=== PATIENT | female | born 1985 | race Caucasian/White ===

== ENCOUNTER 2020-10-07 10:39 | Emergency (ER) | payer OTHER ==
--- NOTE | 2020-10-07 10:52 | ERPHSYRPT ---
- History of Present Illness Time Seen by Provider: 10/07/20 10:52 Source: patient, family Exam Limitations: no limitations Physician History: This is a 35-year-old white female who has no diagnosed medical history except occasional panic attacks and is not on any medication and presents with a 1 week history of intermittent chest pain, back pain and pain up into both upper extremities. She has not had any coughing. She has no abdominal pain. She has no nausea vomiting or diarrhea. She had no fever symptoms. The chest pain is sharp with the above stated sites of radiation. She is not short of breath. Patient does smoke cigarettes and admits that she drinks a large amount of caffeinated energy drinks daily. Timing/Duration: week(s) (1) Method of Injury: other (No injury) Quality: sharp Severity of Pain-Max: moderate Severity of Pain-Current: mild Associated Symptoms: denies symptoms Previous symptoms: no prior history Allergies/Adverse Reactions: No Known Drug Allergies Allergy (Verified 10/07/20 11:05) Hx Tetanus, Diphtheria Vaccination/Date Given: Yes (UNKNOWN) Hx Influenza Vaccination/Date Given: No Hx Pneumococcal Vaccination/Date Given: No Travel Risk - International Travel Have you traveled outside of the country in past 3 weeks: No - Coronavirus Screening Are you exhibiting any of the following symptoms?: No Close contact with a COVID-19 positive Pt in past 14-21 Days: No - Review of Systems Constitutional: No Symptoms Eyes: No Symptoms Ears, Nose, & Throat: No Symptoms Respiratory: No Symptoms Cardiac: Chest Pain Abdominal/Gastrointestinal: No Symptoms Genitourinary Symptoms: No Symptoms Musculoskeletal: Back Pain Skin: No Symptoms Neurological: No Symptoms Psychological: No Symptoms Endocrine: No Symptoms Hematologic/Lymphatic: No Symptoms Immunological/Allergic: No Symptoms All Other Systems: Reviewed and Negative - Past Medical History Pertinent Past Medical History: Yes Neurological History: No Pertinent History ENT History: No Pertinent History Cardiac History: Other Respiratory History: No Pertinent History Endocrine Medical History: Hypoglycemia Musculoskeletal History: No Pertinent History GI Medical History: No Pertinent History History: Renal Disease Psycho-Social History: Depression Female Reproductive Disorders: Other Other Medical History: HEART MURMUR - Past Surgical History Past Surgical History: Yes Neuro Surgical History: No Pertinent History Cardiac: No Pertinent History Respiratory: No Pertinent History Gastrointestinal: Other Genitourinary: No Pertinent History Musculoskeletal: No Pertinent History Female Surgical History: Tubal Ligation Other Surgical History: PT STATES "I ON THE TABLE WHEN I WAS GETTING MY TUBES TIED IS WHAT THE MD TOLD ME". COLONOSCOPY IN THE PAST - Social History Smoking Status: Current every day smoker How long have you smoked: 11 Exposure to second hand smoke: Yes Drug Use: none Patient Lives Alone: No - Nursing Vital Signs Nursing Vital Signs: Initial Vital Signs Pulse Rate 80 10/07/20 10:47 Respiratory Rate 26 H 10/07/20 10:47 Blood Pressure 93/63 10/07/20 10:47 O2 Sat by Pulse Oximetry 100 10/07/20 10:47 Pain Scale Pain Intensity 2 - Physical Exam General Appearance: no apparent distress, alert, anxiety Eye Exam: PERRL/EOMI, eyes nml inspection Ears, Nose, Throat Exam: normal ENT inspection, moist mucous membranes Neck Exam: normal inspection, non-tender, supple, full range of motion Respiratory Exam: normal breath sounds, chest tenderness, lungs clear, airway intact, No respiratory distress Cardiovascular Exam: regular rate/rhythm, normal heart sounds, normal peripheral pulses Gastrointestinal Exam: soft, normal bowel sounds, No tenderness Pelvic Exam: not done Rectal Exam: not done Back Exam: normal inspection, normal range of motion, No CVA tenderness, No vertebral tenderness Extremity Exam: normal inspection, normal range of motion, pelvis stable Neurologic Exam: alert, oriented x 3, cooperative, managing director atlas II-XII nml as tested, normal mood/affect, nml cerebellar function, nml station & gait, sensation nml Skin Exam: normal color, warm, dry Lymphatic Exam: No adenopathy SpO2 Interpretation: normal O2 Delivery: Room Air - Course Nursing assessment & vital signs reviewed: Yes EKG Interpreted by Me: RATE (75), Sinus Rhythm, NORMAL AXIS, NORMAL INTERVALS, NORMAL QRS, NORMAL ST-T, Other (No acute ischemic changes on today's EKG. There are no changes when compared to EKG dated 02/18/2013) Ordered Tests: Active Orders 24 hr Category Date Time Status EKG-ER Only STAT Care 10/07/20 11:19 Active IV Insertion STAT Care 10/07/20 11:19 Active Pulse Oximetry (ED) STAT Care 10/07/20 11:19 Active CHEST 1 VIEW (PORTABLE) Stat Exams 10/07/20 11:19 Completed CHEST WITH CONTRAST [CT] Stat Exams 10/07/20 11:53 Completed CBC W DIFF Stat Lab 10/07/20 11:30 Completed CMP Stat Lab 10/07/20 11:30 Completed CULTURE,URINE Stat Lab 10/07/20 11:27 Received D-DIMER QUANTITATIVE Stat Lab 10/07/20 11:30 Completed Manual Differential NC Stat Lab 10/07/20 11:30 Completed PROTIME WITH INR Stat Lab 10/07/20 11:30 Completed TROPONIN Q3H Lab 10/07/20 11:19 Completed TROPONIN Q3H Lab 10/07/20 14:30 Ordered TROPONIN Q3H Lab 10/07/20 17:30 Ordered TROPONIN Q3H Lab 10/07/20 20:30 Ordered TROPONIN Q3H Lab 10/07/20 23:30 Ordered UA W/RFX UR CULTURE Stat Lab 10/07/20 11:27 Completed Urine Triage Profile Stat Lab 10/07/20 11:27 Completed Medication Summary Discontinued Medications Generic Name Dose Route Start Last Admin Trade Name Freq PRN Reason Stop Dose Admin Aspirin 324 mg 10/07/20 11:19 10/07/20 11:34 Baby Aspirin 81 Mg Chew PO 10/07/20 11:20 324 mg STAT ONE Administration Sodium Chloride 500 mls @ 500 mls/hr 10/07/20 11:53 10/07/20 11:58 Sodium Chloride 0.9% 500 Ml IV 10/07/20 12:52 500 mls/hr .Q1H ONE Administration Sodium Chloride Confirm 10/07/20 11:56 Sodium Chloride 0.9% 500 Ml Administered 10/07/20 11:57 Dose 500 mls @ ud IV .STK-MED ONE Ceftriaxone Sodium/Dextrose 1 g in 50 mls @ 100 mls/hr 10/07/20 12:16 12:28 Rocephin 1 Gm-D5w 50 Ml Bag IV 10/07/20 12:45 100 mls/hr STAT STA 100 mls/hr Administration Ceftriaxone Sodium/Dextrose Confirm 10/07/20 12:27 Rocephin 1 Gm-D5w 50 Ml Bag Administered 10/07/20 12:28 Dose 1 g in 50 mls @ ud IV .STK-MED ONE Lab/Rad Data: Laboratory Result Diagrams 10/07/20 11:30 10/07/20 11:30 Laboratory Results 10/07/20 10/07/20 10/07/20 Range/Units 11:30 11:30 11:30 WBC 5.4 (4.0-10.5) K/mm3 RBC 4.62 (4.1-5.4) M/mm3 Hgb 13.6 (12.0-16.0) gm/dl Hct 40.9 (35-47) % MCV 88.5 (78-100) fl MCH 29.4 (26-32) pg MCHC 33.3 (32-36) g/dl RDW 12.9 (11.5-14.0) % Plt Count 164 (150-450) K/mm3 MPV 10.9 (7.5-11.0) fl PT 13.5 H (9.4-12.5) SECONDS INR 1.14 (0.8-3.0) D-Dimer 2490 H* (215-500) ng/mL Sodium 138 (137-145) mmol/L Potassium 3.5 (3.5-5.1) mmol/L Chloride 103 (98-107) mmol/L Carbon Dioxide 22 (22-30) mmol/L Anion Gap 17.1 H (5-15) MEQ/L BUN 6 L (7-17) mg/dL Creatinine 0.66 (0.52-1.04) mg/dL Estimated GFR > 60.0 ML/MIN Glucose 96 (74-106) mg/dL Calcium 9.3 (8.4-10.2) mg/dL Total Bilirubin 0.20 (0.2-1.3) mg/dL AST 49 H (14-36) U/L ALT 46 H (0-35) U/L Alkaline Phosphatase 109 (38-126) U/L Troponin I (0.000-0.034) ng/mL Serum Total Protein 7.7 (6.3-8.2) g/dL Albumin 4.6 (3.5-5.0) g/dL Urine Color (YELLOW) Urine Appearance (CLEAR) Urine pH (5-6) Ur Specific [place] (1.005-1.025) Urine Protein (Negative) Urine Ketones (NEGATIVE) Urine Blood (0-5) Young/ul Urine Nitrite (NEGATIVE) Urine Bilirubin (NEGATIVE) Urine Urobilinogen (0-1) mg/dL Ur Leukocyte Esterase (NEGATIVE) Urine WBC (Auto) (0-5) /HPF Urine RBC (Auto) (0-2) /HPF U Epithel Cells (Auto) (FEW) /HPF Urine Bacteria (Auto) (NEGATIVE) /HPF Urine Culture Reflexed (NO) Urine Glucose (NEGATIVE) mg/dL Urine Opiates Level (NEGATIVE) Ur Methadone (NEGATIVE) Urine Barbiturates (NEGATIVE) Ur Phencyclidine (PCP) (NEGATIVE) Urine Amphetamine (NEGATIVE) U Benzodiazepine Level (NEGATIVE) Urine Cocaine (NEGATIVE) Urine Marijuana (THC) (NEGATIVE) 10/07/20 10/07/20 10/07/20 Range/Units 11:27 11:27 11:19 WBC (4.0-10.5) K/mm3 RBC (4.1-5.4) M/mm3 Hgb (12.0-16.0) gm/dl Hct (35-47) % MCV (78-100) fl MCH (26-32) pg MCHC (32-36) g/dl RDW (11.5-14.0) % Plt Count (150-450) K/mm3 MPV (7.5-11.0) fl PT (9.4-12.5) SECONDS INR (0.8-3.0) D-Dimer (215-500) ng/mL Sodium (137-145) mmol/L Potassium (3.5-5.1) mmol/L Chloride (98-107) mmol/L Carbon Dioxide (22-30) mmol/L Anion Gap (5-15) MEQ/L BUN (7-17) mg/dL Creatinine (0.52-1.04) mg/dL Estimated GFR ML/MIN Glucose (74-106) mg/dL Calcium (8.4-10.2) mg/dL Total Bilirubin (0.2-1.3) mg/dL AST (14-36) U/L ALT (0-35) U/L Alkaline Phosphatase (38-126) U/L Troponin I < 0.012 (0.000-0.034) ng/mL Serum Total Protein (6.3-8.2) g/dL Albumin (3.5-5.0) g/dL Urine Color YELLOW (YELLOW) Urine Appearance CLOUDY (CLEAR) Urine pH 6.0 (5-6) Ur Specific [place] 1.002 (1.005-1.025) Urine Protein NEGATIVE (Negative) Urine Ketones NEGATIVE (NEGATIVE) Urine Blood LARGE (0-5) Young/ul Urine Nitrite NEGATIVE (NEGATIVE) Urine Bilirubin NEGATIVE (NEGATIVE) Urine Urobilinogen NEGATIVE (0-1) mg/dL Ur Leukocyte Esterase TRACE (NEGATIVE) Urine WBC (Auto) 6-10 (0-5) /HPF Urine RBC (Auto) 0-2 (0-2) /HPF U Epithel Cells (Auto) FEW (FEW) /HPF Urine Bacteria (Auto) RARE (NEGATIVE) /HPF Urine Culture Reflexed YES (NO) Urine Glucose NEGATIVE (NEGATIVE) mg/dL Urine Opiates Level NEGATIVE (NEGATIVE) Ur Methadone NEGATIVE (NEGATIVE) Urine Barbiturates NEGATIVE (NEGATIVE) Ur Phencyclidine (PCP) NEGATIVE (NEGATIVE) Urine Amphetamine NEGATIVE (NEGATIVE) U Benzodiazepine Level NEGATIVE (NEGATIVE) Urine Cocaine NEGATIVE (NEGATIVE) Urine Marijuana (THC) NEGATIVE (NEGATIVE) - Progress Progress: improved, re-examined Progress Note: 10/07/20 11:43 Chest x-ray shows no acute cardiopulmonary process 10/07/20 12:59 CAT scan of the chest with contrast shows no evidence of any pulmonary emboli, pneumothorax, pneumonia or other acute pulmonary process. Counseled pt/family regarding: lab results, diagnosis, need for follow-up, rad results - Departure Departure Disposition: Home Clinical Impression: Chest pain, Back pain, Urinary tract infection Condition: Stable Critical Care Time: No Referrals: PETER HILL MD [ACTIVE STAFF] - Additional Instructions: Drink plenty of fluids. Take medication as prescribed. Follow-up with your primary care physician for further management. Prescriptions: Ciprofloxacin [Cipro 500 MG] 500 mg PO BID #14 tablet
[2020-10-07] MEDS ORDERED: BABY ASPIRIN 81 MG CHEW PO ONE (11:19)
[2020-10-07 11:27] VITALS: O2SAT 98
[2020-10-07 11:34] LABS: Hematocrit 40.9 % (35-47); Hemoglobin 13.6 gm/dl (12.0-16.0); Mean Cell Volume 88.5 fl (78-100); Mean Corpuscular Hemoglobin 29.4 pg (26-32); Mean Corpuscular Hgb Concent. 33.3 g/dl (32-36); Mean Platelet Volume 10.9 fl (7.5-11.0); Platelet Count 164 K/mm3 (150-450); Red Blood Count 4.62 M/mm3 (4.1-5.4); Red Cell Distribution Width 12.9 % (11.5-14.0); White Blood Count 5.4 K/mm3 (4.0-10.5)
--- NOTE | 2020-10-07 11:36 | XRAY ---
Indication: Chest pain. Comparison: February 14, 2013. Portable chest again demonstrate normal heart, lungs, and bony thorax.
[2020-10-07 11:40] LABS: Appearance CLOUDY (CLEAR); Bacteria RARE /HPF (NEGATIVE); Bilirubin NEGATIVE (NEGATIVE); Blood LARGE Ery/ul (0-5); Epithelial Cells FEW /HPF (FEW); Glucose NEGATIVE (NEGATIVE); Ketones NEGATIVE (NEGATIVE); Leukocyte Esterase TRACE (NEGATIVE); Nitrite NEGATIVE (NEGATIVE); Protein,Urine Dip NEGATIVE (Negative); RBC 0-2 /HPF (0-2); Specific Gravity 1.002 (1.005-1.025); Urobilinogen NEGATIVE mg/dL (0-1)
[2020-10-07 11:43] LABS: INR 1.14 (0.8-3.0); PROTIME 13.5 SECONDS (9.4-12.5)
[2020-10-07 11:48] LABS: ALBUMIN 4.6 g/dL (3.5-5.0); ALKALINE PHOSPHATASE 109 U/L (38-126); ANION GAP 17.1 MEQ/L (5-15); BLOOD UREA NITROGEN 6 mg/dL (7-17); CHLORIDE 103 mmol/L (98-107); Calcium 9.3 mg/dL (8.4-10.2); Carbon Dioxide 22 mmol/L (22-30); Creatinine 1 0.66 mg/dL (0.52-1.04); EST GLOMERULAR FILTRATION RATE > 60.0 ML/MIN; Glucose 96 mg/dL (74-106); Potassium 3.5 mmol/L (3.5-5.1); SGOT/AST 49 U/L (14-36); SGPT/ALT 46 U/L (0-35); SODIUM 138 mmol/L (137-145); Total Protein 7.7 g/dL (6.3-8.2)
[2020-10-07] MEDS ORDERED: Sodium Chloride 0.9% 500 ML 500 ML IV ONE ×2 (11:53→11:56)
[2020-10-07 12:03] LABS: Amphetamine,Urine NEGATIVE (NEGATIVE); Barbiturate,Urine NEGATIVE (NEGATIVE); Benzodiazepine,Urine NEGATIVE (NEGATIVE); Cocaine,Urine NEGATIVE (NEGATIVE); Methadone,Urine NEGATIVE (NEGATIVE); Opiate,Urine NEGATIVE (NEGATIVE); PCP,Urine NEGATIVE (NEGATIVE); THC,Urine NEGATIVE (NEGATIVE)
[2020-10-07] MEDS ORDERED: ROCEPHIN 1 Gm-D5w 50 ml Bag** 1 G/50 ML IVPB IV STA (12:16)
[2020-10-07] MEDS ORDERED: ROCEPHIN 1 Gm-D5w 50 ml Bag** 1 G/50 ML IVPB IV ONE (12:27)
--- NOTE | 2020-10-07 12:53 | XRAY ---
Indication chest and back pain radiating both arms one week. Multiple contiguous axial images obtained through the chest using 100 cc Isovue 370 contrast and PE protocol. Comparison: None Good opacification of the pulmonary arteries to include the lobar and segmental branches. No pulmonary embolus. Heart not enlarged. Aorta is normal in course and caliber. No pathologic mediastinal/hilar lymphadenopathy. Lungs demonstrate minimal bilateral dependent atelectasis. No suspicious pulmonary mass, infiltrate, effusion, or pneumothorax. Bony thorax intact. Limited upper abdomen including adrenal glands unremarkable. Impression: Negative CT chest with contrast exam.
[2020-10-07 13:20] VITALS: BP 104/56; PULSE 70
[2020-10-07 20:36] LABS: BAND 2 % (0.0-2.0); Basophil 1 % (0.0-1.0); Eosinophil 1 % (0.00-3.0); Lymphocytes 43 % (24-44); Monocyte 10 % (0.0-12.0); Neutrophils 43 % (36.0-66.0); Platelet Estimate NORMAL (NORMAL); Total Cells Counted 100
== END 2020-10-07 13:22 | disposition home or self-care (01) ==
LOC: ED 10:39
DX: R07.9 Chest pain, unspecified (principal); M54.9 Dorsalgia, unspecified; N39.0 Urinary tract infection, site not specified
CPT/HCPCS: 36000; 36415; 71045; 71260; 80053; 80307; 81001; 84484; 85025; 85379; 85610; 87086; 93005; 94760; 96365; 99284; J0696; A9270-GY